=== PATIENT | female | born 2005 | race Caucasian/White ===

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

== ENCOUNTER 2024-11-29 22:53 | Emergency (ER) | payer SELFPAY ==
[~2024-11-29] VITALS: Ht 162.6 cm; Wt 72.0 kg
[2024-11-29 23:27] VITALS: BP 112/72
[2024-11-29] MEDS ORDERED: ONDANSETRON HCl 4 MG/2 ML SDV IV ONE (23:35)
[2024-11-29] MEDS ORDERED: SODIUM CHLORIDE 0.9% 1,000 ML IV ONE (23:35)
[2024-11-29 23:47] LABS: BASO% 0.2 % (0-3); EOS% 0.3 % (0-8); HEMATOCRIT 42.7 % (37.0-47.0); HEMOGLOBIN 14.2 g/dl (12.0-16.0); IMMATURE GRANULOCYTES 0.2 % (0.0-5.0); LYMPH% 10.5 % (15-41); MEAN CELL VOLUME 90.1 fL CALC (80.0-100.0); MEAN CORPUSCULAR HGB CONC 33.3 g/dL CAL (32.0-36.0); MONO% 4.5 % (2-13); NEUT# 13.56 thou/uL (2.00-7.15); NEUT% 84.3 % (42-76); RED BLOOD COUNT 4.74 mill/uL (4.20-5.60); RED CELL DISTRI WIDTH 12.3 % (11.5-15.5)
[2024-11-30 00:06] LABS: ALBUMIN 4.8 g/dL (3.2-5.0); CREATININE 0.7 mg/dL (0.5-1.0); POTASSIUM 3.6 mmol/l (3.5-5.1); TOTAL PROTEIN 8.2 g/dL (6.3-8.2)
[2024-11-30 00:08] LABS: BILIRUBIN, TOTAL 0.7 mg/dL (0.02-1.3)
[2024-11-30 00:21] LABS: URINE BLOOD DIPSTICK Small (NEGATIVE); URINE GLUCOSE - DIPSTICK 100 mg/dL (NEGATIVE); URINE KETONE Negative (NEGATIVE); URINE LEUK ESTERASE Negative (NEGATIVE); URINE NITRITE - DIPSTICK Negative (Negative); URINE PH 5.5 (4.5-8.0); URINE PROTEIN - DIPSTICK 100 mg/dL (NEG-TRACE); URINE SPECIFIC GRAVITY >=1.030; URINE UROBILINOGEN - DIPSTICK 0.2 E.U./dL (0.2)
[2024-11-30 00:23] LABS: URINE COLOR Yellow
[2024-11-30 00:29] LABS: URINE MUCUS FEW hpf (NONE-FEW); URINE RBC 0-2 RBC/hpf (0-5); URINE SQUAMOUS EPITHELIAL CELL MANY EPI/hpf (0-FEW)
[2024-11-30] MEDS ORDERED: ONDANSETRON 4 MG/TAB ODT SL ONE (00:30)
[2024-11-30 00:34] VITALS: BP 112/72
== END 2024-11-30 00:39 | disposition home or self-care (01) | DRG 392 ==
LOC: ED 22:53
PROVIDERS: Family Medicine
DX: K52.9 Noninfective gastroenteritis and colitis, unspecified (principal)
CPT/HCPCS: J2405

== ENCOUNTER 2024-12-20 21:44 | Emergency (ER) | payer SELFPAY ==
[~2024-12-20] VITALS: Ht 162.6 cm; Wt 69.1 kg
[2024-12-20] MEDS ORDERED: MORPHINE SULFATE 4 MG/ML VIAL IV ONE (22:00)
[2024-12-20] MEDS ORDERED: Diph, Acellular Pertussis, Tet 0.5 ML/VIAL (Tdap) SDV IM ONE (22:00)
[2024-12-20] MEDS ORDERED: PROMETHAZINE HCL 25 MG/ML AMP IV ONE (22:00)
[2024-12-20] MEDS ORDERED: NEOMYCIN-BACITRACIN-POLYMYXIN 0.5 GM/PAK PAK TOP ONE (22:00)
[2024-12-20] MEDS ORDERED: KETOROLAC TROMETHAMINE 30 MG/ML SDV IV ONE (22:00)
[2024-12-20] MEDS ORDERED: SODIUM CHLORIDE 0.9% 1,000 ML IV ONE (22:00)
[2024-12-20 22:27] LABS: BASO% 0.3 % (0-3); EOS% 1.1 % (0-8); HEMATOCRIT 43.1 % (37.0-47.0); HEMOGLOBIN 14.1 g/dl (12.0-16.0); IMMATURE GRANULOCYTES 0.1 % (0.0-5.0); LYMPH% 29.7 % (15-41); MEAN CELL VOLUME 91.7 fL CALC (80.0-100.0); MEAN CORPUSCULAR HGB CONC 32.7 g/dL CAL (32.0-36.0); MONO% 4.7 % (2-13); NEUT# 10.1 thou/uL (2.00-7.15); NEUT% 64.1 % (42-76); RED BLOOD COUNT 4.7 mill/uL (4.20-5.60); RED CELL DISTRI WIDTH 12.5 % (11.5-15.5); URINE BILIRUBIN - DIPSTICK Negative (NEGATIVE); URINE BLOOD DIPSTICK Negative (NEGATIVE); URINE CLARITY Slightly Cloudy; URINE GLUCOSE - DIPSTICK Negative (NEGATIVE); URINE KETONE 15 mg/dL (NEGATIVE); URINE LEUK ESTERASE Negative (Negative); URINE NITRITE - DIPSTICK Negative (Negative); URINE PROTEIN - DIPSTICK Trace mg/dL (NEG-TRACE); URINE SPECIFIC GRAVITY >=1.030; URINE UROBILINOGEN - DIPSTICK 0.2 E.U./dL (0.2)
[2024-12-20 22:29] LABS: URINE COLOR Yellow
[2024-12-20 22:41] LABS: ALBUMIN 4.7 g/dL (3.2-5.0); BILIRUBIN, TOTAL 0.8 mg/dL (0.02-1.3); CREATININE 0.7 mg/dL (0.5-1.0); TOTAL PROTEIN 7.7 g/dL (6.3-8.2)
[2024-12-20] MEDS ORDERED: POTASSIUM CHLORIDE 20 MEQ/TAB PO ONE (22:55)
[2024-12-20 23:52] VITALS: BP 105/64; BP 89/61
[2024-12-21] VITALS: BP 96/51
[2024-12-21 00:15] VITALS: BP 105/71
[2024-12-21 00:30] VITALS: BP 110/53
[2024-12-21] MEDS ORDERED: HYDROcodone 5 MG/Acetaminophen 325 MG/COMBO PO ONE (00:40)
[2024-12-21] MEDS ORDERED: MORPHINE SULFATE 4 MG/ML VIAL IV ONE (00:40)
[2024-12-21] MEDS ORDERED: KEFLEX500 MG PO (00:41)
[2024-12-21] MEDS ORDERED: LORTAB 5/3255 MG PO (00:41)
[2024-12-21] MEDS ORDERED: MOTRIN800 MG PO (00:41)
[2024-12-21 00:46] VITALS: BP 99/82
[2024-12-21 01:56] VITALS: BP 111/70
[2024-12-21] MEDS ORDERED: PROMETHAZINE HCL 25 MG/ML AMP IM ONE (02:15)
== END 2024-12-21 02:45 | disposition home or self-care (01) | DRG 605 ==
LOC: ED 21:44
PROVIDERS: Family Medicine
DX: S00.83XA Contusion of other part of head, initial encounter (principal); S00.511A Abrasion of lip, initial encounter; S00.81XA Abrasion of other part of head, initial encounter; S70.312A Abrasion, left thigh, initial encounter; S80.212A Abrasion, left knee, initial encounter; V86.55XA Driver of 3- or 4- wheeled all-terrain vehicle (ATV) injured in nontraffic accident, initial encounter
CPT/HCPCS: 90715; J0690; J2550